=== PATIENT | female | born 1985 ===

== ENCOUNTER 2023-07-02 16:04 | Inpatient (IN) | payer OTHER ==
[~2023-07-02] VITALS: Ht 158.8 cm; Wt 95.5 kg
[2023-07-03] VITALS (18 sets, daily range): BP systolic 99–138; BP diastolic 50–77; PULSE 82–112; TEMP 97.8–98.6
[2023-07-03] MEDS ORDERED: SINGULAIR 110 MG/TAB PO (01:55)
[2023-07-03] MEDS ORDERED: PROTONIX 40MG T40 MG PO (01:55)
[2023-07-03] MEDS ORDERED: PRENATAL VITAMI1 T12 PO (01:55)
[2023-07-03] MEDS ORDERED: LR 1,000 ML IV SCH (05:45)
--- NOTE | 2023-07-03 05:50 | NUR ---
Ambulatory to unit for scheduled primary C/S, accompanied by spouse. Oriented to room plan of care.
[2023-07-03 06:47] LABS: BASO # 0.1 K/mm3 (0.0-0.2); BASO % 0.5 % (0.0-2.0); EOS # 0.1 K/mm3 (0.0-0.7); GRAN # 8.6 K/mm3 (1.4-6.5); GRAN % 67.2 % (42.2-75.2); HEMOGLOBIN 12.8 g/dl (12.5-16.0); LYMPH # 2.9 K/mm3 (1.2-3.4); LYMPH % 22.7 % (20.0-51.0); MEAN CELL VOLUME 93 fl (80.0-100.0); MEAN CORPUSCULAR HEMOGLOBIN 31 pg (27-31); MEAN CORPUSCULAR HGB CONC 34 g/dl (33.0-37.0); MEAN PLATELET VOLUME 10.1 fl (7.4-10.4); MONO # 0.9 K/mm3 (0.1-0.6); MONO % 7.2 % (1.7-9.3); PLATELET COUNT 260 K/mm3 (130-400); RED BLOOD COUNT 4.09 M/mm3 (4.10-5.30); REDCELL DISTRIBUTION WIDTH-CV 13.1 % (11.5-14.5)
[2023-07-03] MEDS ORDERED: NS 20 ML IV ONE (07:19)
[2023-07-03] MEDS ORDERED: Oxytocin 10 UNITS/ML VIAL ONE (07:19)
[2023-07-03] MEDS ORDERED: Ondansetron 4 MG/2 ML VIAL ONE (07:19)
[2023-07-03] MEDS ORDERED: Ketorolac 60 MG/2 ML VIAL IM ONE (07:20)
[2023-07-03] MEDS ORDERED: Phenylephrine 10 MG/ML VIAL ONE (07:20)
[2023-07-03] MEDS ORDERED: LR 1,000 ML IV ONE (07:37)
[2023-07-03] MEDS ORDERED: Meperidine 50 MG/ML 1 ML VIAL ONE (07:57)
[2023-07-03] MEDS ORDERED: EPINEPHrine 1 MG/1 ML Ampule ONE (08:07)
[2023-07-03] MEDS ORDERED: Measles/Mumps/Rubella Virus Vaccine Live w Diluent 0.5 ML VIAL SQ SCH (09:00)
[2023-07-03] MEDS ORDERED: Naloxone 0.4 MG/ML VIAL IV PRN (09:00)
[2023-07-03] MEDS ORDERED: Loratadine 10 MG TAB PO PRN (09:00)
[2023-07-03] MEDS ORDERED: Ondansetron 4 MG/2 ML VIAL IV PRN (09:00)
[2023-07-03] MEDS ORDERED: LR 1,000 ML IV PRN (09:00)
[2023-07-03] MEDS ORDERED: oxyCODONE 5 MG TAB PO PRN ×2 (09:00→14:15)
[2023-07-03] MEDS ORDERED: Magnes Hydrox (MOM) 80 MG/ML 30 ML CUP PO PRN (09:00)
[2023-07-03] MEDS ORDERED: Morphine 4 MG/ML VIAL IV PRN (09:00)
--- NOTE | 2023-07-03 12:30 | NUR ---
REPORT RECEIVED BY THIS RN FROM EVITA ABBOTT.
--- NOTE | 2023-07-03 12:35 | NUR ---
THIS RN GIVES REPORT TO VI HARRISON RN
[2023-07-03] MEDS ORDERED: Ibuprofen 600 MG TAB PO SCH (14:46)
[2023-07-03] MEDS ORDERED: Sennosides/Docusate 8.6-50 MG TAB PO SCH (17:00)
[2023-07-03] MEDS ORDERED: traZODone 50 MG TAB PO PRN (21:00)
[2023-07-04 02:45] VITALS: BP 132/69; PULSE 106; TEMP 97.8
[2023-07-04 11:00] VITALS: BP 129/71; PULSE 118; TEMP 99
--- NOTE | 2023-07-04 17:30 | NUR ---
THIS RN IN ROOM, PT SNORING ASLEEP SO RN DID NOT WAKE.
[2023-07-04] MEDS ORDERED: IBU600 MG PO (20:36)
[2023-07-04] MEDS ORDERED: ROXICODONE 55 MG/TAB PO (20:36)
[2023-07-04 23:20] VITALS: BP 131/70; PULSE 88; TEMP 98
[2023-07-05 07:15] VITALS: BP 117/77; PULSE 106; TEMP 97.8
[2023-07-05] MEDS ORDERED: Polyethylene Glycol 3350 17 GM PDS PO SCH (10:39)
[2023-07-05 20:22] VITALS: BP 141/79; PULSE 97; TEMP 98.1
[2023-07-06 07:00] VITALS: BP 130/79; PULSE 106; TEMP 97.7
[2023-07-06 17:00] VITALS: BP 127/96; PULSE 92; TEMP 98.2
--- NOTE | 2023-07-06 19:50 | NUR ---
Discharge instructions and education reviewed with patient, verbalized understanding. All questions answered. Pt off unit in wheelchair with belongings and infant.
== END 2023-07-06 19:50 | disposition home or self-care (01) | DRG 788 ==
LOC: OB 07-03 05:36
PROVIDERS: ADMIT Obstetrics & Gynecology
PROC: 10D00Z1 Extraction of Products of Conception, Low, Open Approach (ICD-10-PCS; principal; 2023-07-03)
DX: O32.2XX0 Maternal care for transverse and oblique lie, not applicable or unspecified (principal); Z37.0 Single live birth; O36.63X0 Maternal care for excessive fetal growth, third trimester, not applicable or unspecified; O99.344 Other mental disorders complicating childbirth; F41.9 Anxiety disorder, unspecified; F90.9 Attention-deficit hyperactivity disorder, unspecified type; Z3A.39 39 weeks gestation of pregnancy; Z88.5 Allergy status to narcotic agent
CPT/HCPCS: J0171; J0665; J0690; J1885; J2175; J2371; J2405; J2590; J7120